=== PATIENT | female | born 1995 | race Caucasian/White ===

== ENCOUNTER 2018-08-31 14:22 | Emergency (ER) | payer OTHER, BC ==
[2018-08-31] MEDS ORDERED: Ibuprofen TAB* 800 MG PO ONE (15:06)
--- NOTE | 2018-08-31 15:12 | ED ---
Headache - HPI Summary HPI Summary: Patient presents with band-like headache and pressure behind bilateral eyes. She reports this started Thursday while she was at the mall. She left the mall and went home and rested and symptoms seemed to resolve. The symptoms returned yesterday and have been persistent ever since. She reports a sensation of feeling "just a little out of it" however she denies change in vision, aura, photophobia, phonophobia, nausea, vomiting, dizziness, balance issues, numbness , tingling, weakness. She does report upper back and neck tension and has been grinding her teeth at night with mild jaw soreness. 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 She denies injury to head or neck but does admit she is doing muscle testing in school as of late which requires use of her upper extremities. Additionally she states she has not tried any medication or exercises/stretches to resolve her symptoms. She denies fevers, chills, neck stiffness, chest pain, shortness of breath, abdominal pain, nausea, vomiting, diarrhea, rash, rhinorrhea, nasal congestion, otalgia, sore throat, postnasal drip, sneezing, coughing. Reports she sleeps well and eats a balanced diet - 1 c coffee a day - denies excessive caffeine and no heavy ETOH use nor recreational drug use. No personal h/o TERRELL and no family h/o neurological deficits, CVA, or cardiac issues. - History Of Current Complaint Chief Complaint: EDEyeProblem Stated Complaint: EYE PRESSURE Time Seen by Provider: 08/31/18 14:45 Hx Obtained From: Patient - Allergies/Home Medications Allergies/Adverse Reactions: Allergies Allergy/AdvReac Type Severity Reaction Status Date / Time No Known Allergies Allergy Unverified 08/31/18 14:33 Home Medications: Home Medications NK [No Home Medications Reported] 08/31/18 [History Confirmed 08/31/18] PMH/Surg Hx/FS Hx/Imm Hx Previously Healthy: Yes Endocrine/Hematology History: Denies: Hx Anticoagulant Therapy, Hx Blood Disorders, Hx Diabetes, Hx Thyroid Disease, Hx Anemia, Autoimmune Disease Cardiovascular History: Denies: Hx Aneurysm Infectious Disease History: No Infectious Disease History: Denies: Traveled Outside the [place] in Last 30 Days - Family History Known Family History: Positive: None Negative: Cardiac Disease, Hypertension, Diabetes, Seizure Disorder, Blood Disorder - Social History Occupation: Student Physical Exam Vital Signs On Initial Exam: Initial Vitals Temp Pulse Resp BP Pulse Ox 97.3 F 77 17 113/84 97 08/31/18 14:31 08/31/18 14:31 08/31/18 14:31 08/31/18 14:31 08/31/18 14:31 Diagnostics - Vital Signs Vital Signs Temp Pulse Resp BP Pulse Ox 08/31/18 14:31 97.3 F 77 17 113/84 97 - Laboratory Lab Statement: Any lab studies that have been ordered have been reviewed, and results considered in the medical decision making process. Re-Evaluation - Re-Evaluation First Eval Change: Improved Headache Course/Dx - Diagnoses Provider Diagnoses: Tension headache Discharge - Sign-Out/Discharge Documenting (check all that apply): Patient Departure - Discharge Plan Condition: Stable Disposition: HOME Patient Education Materials: Tension Headache (ED) Referrals: [facility] @ [Outside] Additional Instructions: Follow-up with [facility] for tension headaches. You may benefit from ibuprofen but also well balanced diet, stress reduction, neck and upper back exercises/stretches to alleviate tension. If symptoms return or worsen or you develop severe headache, change in vision, dizziness, neck stiffness, fever , chills, numbness, tingling, weakness, confusion, syncope, return to the ED. - Billing Disposition and Condition Condition: STABLE Disposition: Home
[2018-08-31 16:44] VITALS: BP 118/69
== END 2018-08-31 16:44 | disposition home or self-care (01) ==
LOC: EDUNIT# → ED 14:22
DX: G44.209 Tension-type headache, unspecified, not intractable (principal)
CPT/HCPCS: 99281; A9270-GY

== ENCOUNTER 2018-09-30 05:41 | Emergency (ER) | payer OTHER, BC ==
--- NOTE | 2018-09-30 06:00 | ED ---
Abdominal Pain/Female - HPI Summary HPI Summary: This patient is a 23 year old F presenting to [facility] accompanied by boyfriend with a chief complaint of diffuse abd pain radiating to back that began upon waking at 0520 today. The patient rates the pain 9/10 in severity. Symptoms aggravated by nothing. Symptoms alleviated by nothing. Patient reports fever, chills, and headache. Patient denies sore throat and ear ache. - History of Current Complaint Chief Complaint: EDGeneral Stated Complaint: FEVER, ABD PAIN Time Seen by Provider: 09/30/18 05:53 Hx Obtained From: Patient ?: No Onset/Duration: Sudden Onset, Lasting Minutes, Still Present Timing: Constant Severity Initially: Severe Severity Currently: Severe Pain Intensity: 9 Pain Scale Used: 0-10 Numeric Location: Diffuse Radiates: No Aggravating Factor(s): Nothing Alleviating Factor(s): Nothing Associated Signs and Symptoms: Positive: Other: - Positive fever, chills, and headache. Negative sore throat and ear ache. Allergies/Adverse Reactions: Allergies Allergy/AdvReac Type Severity Reaction Status Date / Time No Known Allergies Allergy Unverified 09/30/18 06:03 PMH/Surg Hx/FS Hx/Imm Hx Previously Healthy: Yes Endocrine/Hematology History: Denies: Hx Anticoagulant Therapy, Hx Blood Disorders, Hx Diabetes, Hx Thyroid Disease, Hx Anemia Cardiovascular History: Denies: Hx Aneurysm Neurological History: Denies: Hx Headaches, Hx Migraine Infectious Disease History: No Infectious Disease History: Denies: Traveled Outside the [place] in Last 30 Days - Family History Known Family History: Negative: Cardiac Disease, Hypertension, Diabetes, Seizure Disorder, Blood Disorder - Social History Occupation: Student Lives: With Family Alcohol Use: Occasionally Hx Substance Use: No Substance Use Type: Reports: None Hx Tobacco Use: No Smoking Status (MU): Never Smoked Tobacco Review of Systems Positive: Fever, Chills Negative: Sore Throat, Ear Ache Positive: Abdominal Pain Positive: Headache All Other Systems Reviewed And Are Negative: Yes Physical Exam - Summary Physical Exam Summary: Appearance: Well appearing, no pain distress Skin: warm, dry, reflects adequate perfusion Head/face: normal Eyes: EOMI, MIKI ENT: normal Neck: supple, non-tender Respiratory: CTA, breath sounds present Cardiovascular: RRR, pulses symmetrical Abdomen: diffuse tenderness, soft Bowel: present Musculoskeletal: normal, strength/ROM intact Neuro: normal, sensory motor intact, A&Ox3 Triage Information Reviewed: Yes Vital Signs On Initial Exam: Initial Vitals Temp Pulse Resp BP Pulse Ox 98.7 F 117 20 137/70 98 09/30/18 05:48 09/30/18 05:48 09/30/18 05:48 09/30/18 05:48 09/30/18 05:48 Vital Signs Reviewed: Yes Diagnostics - Vital Signs Vital Signs Temp Pulse Resp BP Pulse Ox 09/30/18 05:48 98.7 F 117 20 137/70 98 - Laboratory Result Diagrams: 09/30/18 06:29 09/30/18 06:29 Lab Statement: Any lab studies that have been ordered have been reviewed, and results considered in the medical decision making process. Abdominal Pain Fem Course/Dx - Course Course Of Treatment: This patient is a 23 year old F presenting to [facility] accompanied by boyfriend with a chief complaint of RLQ abd pain radiating to back that began upon waking at 0520 today. Physical Exam Findings: Diffuse abdominal tenderness. Bloodwork obtained. In the ED course the patient was given fluids. Patient will be signed out to Dr. Liu upon shift change pending CT and disposition. The patient is agreeable with this plan. - Diagnoses Differential Diagnosis: Positive: Diverticulitis, Pancreatitis, Renal Colic, Urinary Tract Infection Provider Diagnoses: Fever, Abdominal pain Discharge - Sign-Out/Discharge Documenting (check all that apply): Sign-Out Patient Signing out patient TO: Nicholas Liu - Upon shift change pending CT and disposition - Discharge Plan Referrals: No Primary Care Phys,[facility] [Primary Care Provider] - - Attestation Statements Document Initiated by Scribe: Yes Documenting Scribe: Monet Vickers Provider For Whom Moizibtasha is Documenting (Include Credential): Sahil Wells MD Scribe Attestation: I, Monet Vickers, scribed for Sahil Wells MD on 09/30/18 at 0657. Scribe Documentation Reviewed: Yes Provider Attestation: The documentation as recorded by the Monet dill accurately reflects the service I personally performed and the decisions made by me, Sahil Wells MD
[2018-09-30] MEDS ORDERED: NS 0.9% 1000 ML* 1,000 ML IV ONE (06:07)
[2018-09-30 06:42] LABS: ABS Basophils 0 10^3/ul (0-0.2); ABS Eosinophils 0 10^3/ul (0-0.6); ABS Lymphocytes 0.6 10^3/ul (1.0-4.8); ABS Monocytes 0.5 10^3/ul (0-0.8); ABS Neutrophils 9.6 10^3/ul (1.5-7.7); ABS Nucleated RBC 0 10^3/ul; Eosinophil % 0.1 % (0-6); Hematocrit 43 % (35-47); Hemoglobin 14.7 g/dl (12.0-16.0); Lymphocyte % 5.5 % (25-47); Mean Corpuscular HGB Conc 35 g/dl (31-36); Mean Corpuscular Hemoglobin 30 pg (27-31); Mean Corpuscular Volume 87 fL (80-97); Mean Platelet Volume 7.8 um3 (7.4-10.4); Nucleated Red Blood Cells % 0; Platelet Count 224 10^3/ul (150-450); Red Cell Distribution Width 14 % (10.5-15); White Blood Count 10.7 10^3/ul (3.5-10.8)
[2018-09-30 06:43] LABS: Urine Appearance Clear; Urine Blood 1+ (Negative); Urine Color Yellow; Urine Ketones 1+ (Negative); Urine Protein Negative (Negative); Urine Red Blood Cell Trace(0-2/hpf) (Absent); Urine Urobilinogen Negative (Negative); Urine White Blood Cell Trace(0-5/hpf) (Absent)
[2018-09-30 06:44] LABS: INR 1.08 (0.77-1.02)
[2018-09-30 06:57] LABS: EGFR Non-African American 83.3 (>60)
[2018-09-30] MEDS ORDERED: Lidocaine 2% VISCOUS* 15 ML UDC PO ONE (07:32)
[2018-09-30] MEDS ORDERED: Al Hydrox/Mg Hydrox/Simet LIQ* 30 ML UDC PO ONE (07:32)
[2018-09-30] MEDS ORDERED: Iohexol 300* (CONTRAST) 10 ML SDV IV ONE (07:54)
--- NOTE | 2018-09-30 08:15 | RAD ---
INDICATION: Fever COMPARISON: None TECHNIQUE: PA and lateral views of the chest were obtained. FINDINGS: The heart and mediastinum are normal in size and contour. The lungs are grossly clear. There is no evidence of large pleural effusion. Visualized bones are normal for the patient's age. There is no radiographic evidence of free air beneath the diaphragm IMPRESSION: No radiographic evidence of acute cardiopulmonary disease. R1NF
--- NOTE | 2018-09-30 08:25 | RAD ---
CLINICAL HISTORY: abd pain/pyelonephritis/diverticulitis COMPARISON: None TECHNIQUE: Multiple contiguous axial CT scans were obtained of the abdomen and pelvis after the administration of intravenous contrast. Coronal and sagittal multiplanar reformations are submitted for review. Oral contrast was administered. Delayed images were obtained through the abdomen. FINDINGS: LUNG BASES: The lung bases are clear. LIVER: The liver is normal in shape, size, contour, and attenuation. BILE DUCTS: There is no intrahepatic or extrahepatic biliary dilatation. GALLBLADDER: The gallbladder is normal, without pericholecystic inflammatory change. PANCREAS: The pancreas is normal, without mass or ductal dilatation. SPLEEN: Normal in size and appearance. UPPER GI TRACT: Evaluation of the gastrointestinal tract is limited by incomplete gastric distention. The upper GI tract is unremarkable. SMALL BOWEL AND MESENTERY: The small bowel is normal in contour, course, and caliber. There is no obstruction or dilatation. COLON: The colon is normal in contour, course, caliber. There is no pericolonic inflammatory change. There is large amount of stool within the distal colon. ADRENALS: Normal bilaterally. KIDNEYS: The kidneys are normal in shape, size, contour, and axis. There is no hydronephrosis or nephrolithiasis. BLADDER: The bladder is smooth in contour. PELVIC ORGANS: The uterus and adnexa are grossly normal for technique. AORTA: The aorta is normal. IVC: Unremarkable LYMPH NODES: There is no lymphadenopathy by size criteria. ABDOMINAL WALL: There is no evidence for abdominal wall hernia. BONES AND SOFT TISSUES: Unremarkable OTHER: None IMPRESSION: NO ACUTE CT PATHOLOGY OF THE VISUALIZED ABDOMEN AND PELVIS.
[2018-09-30] MEDS ORDERED: Ondansetron INJ* 2 MG/ML VIAL IV ONE (08:31)
--- NOTE | 2018-09-30 08:44 | ED ---
Progress - Progress Note Progress Note: This patient was signed out to Dr. Liu from Dr. Wells, pending dispo, awaiting CT abd/pel. CXR reveals no radiographic evidence of acute cardiopulmonary disease. CT abd/pel reveals NO ACUTE CT PATHOLOGY OF THE VISUALIZED ABDOMEN AND PELVIS. Re-eval done at 0837: The patient is a 23 year old F presenting to the ED with a chief complaint of sharp abdominal pain radiating to the mid and lower back bilaterally that woke her up at 0520 this morning. She reports that last night she just felt awful, myalgia, chills, intermittent cough, weakness, and nausea. She also reports that she has had a TERRELL for the last 2-3 days. The patient rates the pain at 4/10 in severity currently. Patient denies vomiting, diarrhea, sore throat, sores on her skin, dysuria, and hematuria. 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 Currently, the patient has a fever in the room. LMP ended 1-2 days ago. Constitutional: Well-developed, Well-nourished, Alert. (-) Distressed Skin: Warm, Dry HENT: Normocephalic; Atraumatic Eyes: Conjunctiva normal Neck: Musculoskeletal ROM normal neck. (-) JVD, (-) Stridor, (-) Tracheal deviation Cardio: Rhythm regular, rate normal, Heart sounds normal; Intact distal pulses; The pedal pulses are 2+ and symmetric. Radial pulses are 2+ and symmetric. (-) Murmur Pulmonary/Chest wall: Effort normal. (-) Respiratory distress, (-) Wheezes, (-) Rales Abd: Soft, (-) epigastric tenderness, (-) Distension, (-) Guarding, (-) Rebound. RUQ and suprapubic abdominal pain. Musculoskeletal: (-) Edema Lymph: (-) Cervical adenopathy Neuro: Alert, Oriented x3 Psych: Mood and affect Normal Transvaginal US reveals NO ACUTE SONOGRAPHIC PATHOLOGY OF THE VISUALIZED PORTION OF THE PELVIS. NO SONOGRAPHIC FEATURES OF TORSION. PLEASE NOTE THAT PARTIAL OR INTERMITTENT TORSION MAY BE SONOGRAPHICALLY NORMAL. Dr. Liu has reviewed this radiology report. Gallbladder US reveals NO ACUTE SONOGRAPHIC PATHOLOGY OF THE VISUALIZED PORTION OF THE ABDOMEN. Dr. Liu has reviewed this radiology report. Pelvic exam, external and internal was done at 1217. Sampler Pickup was Nurse Yenny. Exam was normal. No cervical motion tenderness. No adnexal tenderness. No nuchal rigidity. Therefore, I do not suspect the patient has meningitis. The patient now has an occipital TERRELL but her abdomen is now soft and non-tender. The patient will be discharged with dx of viral syndrome. Discussed results with the patient and she understands and agrees with this plan. Course/Dx - Diagnoses Provider Diagnoses: Viral syndrome Discharge - Sign-Out/Discharge Documenting (check all that apply): Patient Departure - discharge - Discharge Plan Condition: Stable Disposition: HOME Patient Education Materials: Viral Syndrome (ED) Referrals: [facility] [Outside] (2-3 days) Additional Instructions: PLEASE FOLLOW UP WITH YOUR PRIMARY CARE PHYSICIAN IN 2-3 DAYS. RETURN TO THE EMERGENCY DEPARTMENT FOR CHANGING OR WORSENING SYMPTOMS - Attestation Statements Document Initiated by Scribe: Yes
--- NOTE | 2018-09-30 09:52 | RAD ---
HISTORY: ruq pain, fever COMPARISONS: CT dated September 30, 2018 TECHNIQUE: Multiple transverse and longitudinal ultrasound images were obtained of the right upper quadrant of the abdomen using grayscale and color Doppler imaging. FINDINGS: LIVER: The liver is normal in shape, size, contour, and echogenicity. There are no focal parenchymal masses. There is normal hepatopedal flow of the portal vein on Doppler imaging. BILIARY TREE: There is no intrahepatic or extrahepatic biliary dilatation. The common duct measures 0.2 cm. GALLBLADDER: The gallbladder is well-visualized. There is no cholelithiasis, gallbladder wall thickening, pericholecystic fluid, or sonographic Hess sign. PANCREAS: The head of the pancreas is unremarkable. The tail of the pancreas is not well visualized secondary to overlying bowel gas. RIGHT KIDNEY: The right kidney is normal in shape, size, contour, and echogenicity. There is no hydronephrosis or nephrolithiasis. The right kidney measures 11.9 x 4.2 x 5.3 cm. AORTA AND IVC: The aorta and IVC are unremarkable. FLUID: There are no pleural effusions. There is no free fluid within the hepatorenal recess. OTHER FINDINGS: None. IMPRESSION: NO ACUTE SONOGRAPHIC PATHOLOGY OF THE VISUALIZED PORTION OF THE ABDOMEN.
--- NOTE | 2018-09-30 09:53 | RAD ---
HISTORY: abd pain, fever COMPARISONS: None TECHNIQUE: Multiple transverse and longitudinal ultrasound images were obtained of the pelvis using grayscale, color Doppler, and spectral Doppler imaging using the endovaginal transducer. FINDINGS: UTERUS: The uterus measures 7.1 x 3.6 x 4.8 cm. The uterus is normal in shape, size, contour, and echotexture. ENDOMETRIUM: The endometrial stripe is smooth. The endometrium measures 1 cm in thickness. CUL-DE-SAC: There is no free fluid within the cul-de-sac. RIGHT OVARY: The right ovary measures 3.3 x 2 x 2.5 cm. Multiple follicles are noted. Normal arterial and venous waveforms are identifiable within the ovary on spectral Doppler imaging. LEFT OVARY: The left ovary measures 3.3 x 1.8 x 2.9 cm. Normal arterial and venous waveforms are identifiable within the ovary on spectral Doppler imaging. Multiple follicles are noted. BLADDER: The bladder is not well visualized. OTHER: None IMPRESSION: NO ACUTE SONOGRAPHIC PATHOLOGY OF THE VISUALIZED PORTION OF THE PELVIS. NO SONOGRAPHIC FEATURES OF TORSION. PLEASE NOTE THAT PARTIAL OR INTERMITTENT TORSION MAY BE SONOGRAPHICALLY NORMAL.
[2018-09-30 13:12] VITALS: BP 128/78
== END 2018-09-30 13:04 | disposition home or self-care (01) ==
LOC: ED 05:41
DX: B34.9 Viral infection, unspecified (principal); R10.9 Unspecified abdominal pain; R50.9 Fever, unspecified; R51 Headache
CPT/HCPCS: 36415; 71046; 74177; 76705; 76830; 80053; 81003; 81015; 83605; 83690; 84702; 85025; 85610; 85730; 87040; 87086; 87480; 87491; 87510; 87591; 87651; 96361; 96374; 99282; A9270-GY; J2405; Q9967